=== PATIENT | female | born 2000 | race Caucasian/White ===

== ENCOUNTER → 2018-02-23 13:39 | Outpatient (CLI) | payer OTHER, SELFPAY ==
[2018-02-23 16:11] LABS: HCG,Quantitative 34 mIU/mL
== END ==
PROVIDERS: Visit Provider Nurse Practitioner Obstetrics & Gynecology
DX: Z32.00 Encounter for pregnancy test, result unknown (principal)
CPT/HCPCS: 36415; 84702

== ENCOUNTER → 2018-02-25 10:03 | Outpatient (CLI) | payer OTHER, SELFPAY ==
[2018-02-25 10:42] LABS: HCG,Quantitative 33 mIU/mL
== END ==
PROVIDERS: Visit Provider Nurse Practitioner Obstetrics & Gynecology
DX: Z30.432 Encounter for removal of intrauterine contraceptive device (principal)
CPT/HCPCS: 36415; 84702

== ENCOUNTER → 2018-03-02 12:22 | Outpatient (CLI) | payer OTHER, SELFPAY ==
[2018-03-02 13:07] LABS: HCG,Quantitative 5 mIU/mL
== END ==
PROVIDERS: Visit Provider Nurse Practitioner Obstetrics & Gynecology
DX: Z32.00 Encounter for pregnancy test, result unknown (principal)
CPT/HCPCS: 36415; 84702

== ENCOUNTER → 2018-05-05 16:32 | Outpatient (CLI) | payer OTHER, SELFPAY ==
[2018-05-05 19:22] LABS: HCG,Quantitative 5719 mIU/mL
== END ==
PROVIDERS: Visit Provider Nurse Practitioner Obstetrics & Gynecology
DX: O26.841 Uterine size-date discrepancy, first trimester (principal)
CPT/HCPCS: 36415; 84702

== ENCOUNTER → 2018-06-04 19:16 | Outpatient (REF) | payer OTHER, SELFPAY ==
[2018-06-09 19:21] LABS: Neisseria gonorrhoeae, NAA Negative (Negative)
== END ==
LOC: LAB 19:16
PROVIDERS: Obstetrics & Gynecology; Visit Provider Nurse Practitioner Obstetrics & Gynecology
DX: Z34.90 Encounter for supervision of normal pregnancy, unspecified, unspecified trimester (principal)
CPT/HCPCS: 87491; 87591

== ENCOUNTER → 2018-06-05 08:47 | Outpatient (CLI) | payer OTHER, SELFPAY ==
--- NOTE | 2018-06-05 08:49 | US_ITS ---
US OB transvaginal Ordering Physician: Leigha Cordero MD Patient Age: 17 years: Female HISTORY: ITS.REASON: US OB TV for DATES Early gestation evaluate for dates TECHNIQUE: Transvaginal ultrasound COMPARISON :No previous studies this . Transvaginal ultrasound 01/24/2015 noted FINDINGS Single viable intrauterine gestation. Cervix long closed. The amnion. Yolk sac. Embryo with heart beat identified. ... MEASUREMENTS: ... Average Ultrasound Age = 9 weeks 3 days Estimated date of delivery is on today's ultrasound is 01/05/2019 CRL 2.56 cm = 9 weeks 3 days. Yolk sac 0 point for 9 cm. Heart rate 146 BPM. -- Right ovary measures 3.6 x 1.8 x 2.2 cm. Left ovary measures 3 cm x 2.5 cm x 2.2 cm. Small follicles scattered throughout both ovaries. No dominant cyst identified. No fluid in cul-de-sac. IMPRESSION ----- 1. single viable intrauterine gestation. 2. CRL & Average Ultrasound Age = 9 weeks 3 days
== END ==
PROVIDERS: Family Provider Physician Assistant; PCP Nurse Practitioner Family; Visit Provider Obstetrics & Gynecology
DX: Z71.1 Person with feared health complaint in whom no diagnosis is made (principal)
CPT/HCPCS: 76830

== ENCOUNTER → 2019-06-10 17:13 | Outpatient (CLI) | payer OTHER, SELFPAY | PROVIDERS: Visit Provider Nurse Practitioner Family | DX: R21 Rash and other nonspecific skin eruption (principal) | CPT/HCPCS: 87070; 87077; 87186; 87205 ==

== ENCOUNTER → 2019-10-14 09:55 | Outpatient (CLI) | payer OTHER, SELFPAY ==
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
== END ==
PROVIDERS: PCP Physician Assistant; Visit Provider Physician Assistant
DX: M25.512 Pain in left shoulder (principal); M75.22 Bicipital tendinitis, left shoulder
CPT/HCPCS: 73030; 73040; 73222; Q9967

== ENCOUNTER → 2020-06-21 15:31 | Outpatient (CLI) | payer OTHER, SELFPAY ==
[2020-06-21 17:38] LABS: HCG Qualitative, Serum Negative (Negative)
[2020-06-23 18:00] LABS: HIV Screen 4th Generation wRfx Non Reactive (Non Reactive); Rapid Plasma Reagin Ab Titer Non Reactive (NonRea<1:1)
[2020-06-24 05:11] LABS: Hep A Ab, IgM Negative (Negative); Hepatitis B Core Antibody IgM Negative (Negative); Hepatitis B Surface Antigen Negative (Negative)
[2020-06-24 19:22] LABS: Hepatitis C Antibody <0.1 s/co ratio (0.0-0.9)
[2020-06-24 19:23] LABS: Neisseria gonorrhoeae, NAA Negative (Negative)
== END ==
PROVIDERS: Visit Provider Physician Assistant
DX: Z20.2 Contact with and (suspected) exposure to infections with a predominantly sexual mode of transmission (principal); N39.0 Urinary tract infection, site not specified
CPT/HCPCS: 80074; 84703; 86592; 86703; 87086; 87210; 87491; 87591; G0432

== ENCOUNTER → 2020-07-17 17:24 | Outpatient (CLI) | payer OTHER, SELFPAY | PROVIDERS: Visit Provider Nurse Practitioner Family | DX: R30.0 Dysuria (principal) | CPT/HCPCS: 87086 ==

== ENCOUNTER → 2020-09-26 10:42 | Outpatient (CLI) | payer OTHER, SELFPAY ==
[2020-09-27 13:38] LABS: Covid-19 Nasal PCR Sendout Lex NOT DETECTED
== END ==
PROVIDERS: PCP Physician Assistant; Visit Provider Physician Assistant
DX: Z03.818 Encounter for observation for suspected exposure to other biological agents ruled out (principal)
CPT/HCPCS: U0004

== ENCOUNTER → 2020-12-12 15:30 | Outpatient (CLI) | payer OTHER, SELFPAY ==
[2020-12-12 16:47] LABS: HCG,Quantitative < 2 mIU/ml (0-5.42)
== END ==
PROVIDERS: Visit Provider Nurse Practitioner Obstetrics & Gynecology
DX: N92.6 Irregular menstruation, unspecified (principal)
CPT/HCPCS: 36415; 84702

== ENCOUNTER → 2021-01-17 09:48 | Outpatient (CLI) | payer OTHER, SELFPAY ==
[2021-01-17 09:52] LABS: Adenovirus F 40/41, stool Not Detected (NotDetected); Astrovirus Not Detected (NotDetected); Campylobacter Not Detected (NotDetected); Clostridium Difficile A/B, PCR Not Detected (NotDetected); Cryptosporidium Not Detected (NotDetected); Cyclospora Cayetanesis Not Detected (NotDetected); Entamoeba histolytica Not Detected (NotDetected); Enteroaggregative E coli Not Detected (NotDetected); Enteropathogenic E coli Not Detected (NotDetected); Enterotoxigenic E coli Not Detected (NotDetected); Giardia lamblia Not Detected (NotDetected); Norovirus Not Detected (NotDetected); Plesimonas Shigalloides, PCR Not Detected (NotDetected); Rotavirus A Not Detected (NotDetected); Salmonella, PCR Not Detected (NotDetected); Sapovirus Not Detected (NotDetected); Shiga-like toxin E coli Not Detected (NotDetected); Shigella Enterovasive E coli Not Detected (NotDetected); Vibrio Cholerae Not Detected (NotDetected); Vibrio, PCR Not Detected (NotDetected); Yersinia Entercolitica, PCR Not Detected (NotDetected)
== END ==
PROVIDERS: Visit Provider Physician Assistant
DX: R19.7 Diarrhea, unspecified (principal); R11.2 Nausea with vomiting, unspecified
CPT/HCPCS: 87507

== ENCOUNTER 2021-11-06 22:38 | Emergency (ER) | payer OTHER, SELFPAY ==
[2021-11-06 22:38] VITALS: BP 152/86; PULSE 95; RESP 22; TEMP 36.8; O2SAT 99; BMI 34.7
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
[2021-11-06 23:00] VITALS: BP 136/98; PULSE 83; O2SAT 99
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
[2021-11-06 23:30] VITALS: BP 138/86; PULSE 90; O2SAT 100
[2021-11-06 23:39] LABS: Basophils # 0.2 K/mm3 (0-0.2); Basophils % 1.6 % (0.1-2.0); Eosinophils # 0.1 K/mm3 (0.0-0.4); Hematocrit 39.2 % (37.0-47.0); Hemoglobin 13.5 g/dL (12.2-16.2); Lymphocytes # 2.8 K/mm3 (0.7-4.5); Lymphocytes % 29.1 % (10-50); Mean Corpuscular HGB Conc 34.3 g/dL (31.8-35.4); Mean Corpuscular Hemoglobin 28.7 pg (27.0-31.2); Mean Corpuscular Volume 83.5 fl (81-99); Mean Platelet Volume 7.6 fl (7.4-10.4); Monocytes # 0.4 K/mm3 (0.1-1.0); Monocytes % 3.9 % (1.7-9.3); Neutrophils # 6.3 K/mm3 (1.8-7.8); Neutrophils % 64.3 % (37.0-80.0); Platelet Count 285 K/mm3 (142-424); Red Cell Distribution Width 13.8 % (11.5-17.5); White Blood Count 9.8 K/mm3 (4.8-10.8)
[2021-11-06 23:40] LABS: Chloride 105 mmol/L (98-107); Potassium 3.3 mmoL/L (3.5-5.1); Sodium 140 mmol/L (136-145)
[2021-11-06 23:42] LABS: Blood Urea Nitrogen 15 mg/dl (7-17); Creatinine Clearance Estimated 170 mL/min (50-200); Estimated Glomerular Filt Rate 104 ml/min (>60); GFR (African American) 125 ML/MIN (>60)
[2021-11-06 23:43] LABS: Alanine Aminotransferase 70 U/L (12-78); Albumin Level 4.9 g/dl (3.5-5.0); Albumin/Globulin Ratio 1.5 (1.1-1.8); Alkaline Phosphatase 77 U/L (38-126); Anion Gap 19.3 mEq/L (5-15); Aspartate Amino Transferase 55 U/L (14-36); Bilirubin,Total 0.5 mg/dl (0.2-1.3); Calcium 9.9 mg/dl (8.4-10.2); Carbon Dioxide 19 mmol/L (22.0-30.0); Globulin 3.3 g/dL (1.3-3.2); Glucose 123 mg/dl (74-100); Total Protein,Serum 8.2 g/dl (6.3-8.2)
--- NOTE | 2021-11-06 23:57 | PC.NURSE ---
Spoke with Raad, pharmacist with [facility], regarding patients prescription for tylenol with codeine and patient currently her 2 month old . Additionally, this nurse questioned pharmacy to ask how long it is recommended that the patient not nurse following the medications that she was given in the emergency room, which included lorazepam, dilauded, codeine, toradol and morphine. Patient discharge is pending return call from pharmacy.
--- NOTE | 2021-11-07 00:16 | PC.NURSE ---
Patient states that her child uses both formula and breast milk for her child so she intends to pump and dump for at least 24 hours following her last dose of her medication that she is going home on.
[2021-11-07 00:40] VITALS: BP 122/86; PULSE 78; RESP 20; TEMP 36.7; O2SAT 99
== END 2021-11-07 00:51 | disposition home or self-care (01) ==
PROVIDERS: Emergency Provider Emergency Medicine
DX: T20.29XA Burn of second degree of multiple sites of head, face, and neck, initial encounter (principal); T22.212A Burn of second degree of left forearm, initial encounter; X08.8XXA Exposure to other specified smoke, fire and flames, initial encounter
CPT/HCPCS: 71045; 80053; 85025; 96365; 96375; 99283; J2405

== ENCOUNTER → 2021-11-26 12:29 | Outpatient (CLI) | payer OTHER, SELFPAY | PROVIDERS: PCP Physician Assistant; Visit Provider Nurse Practitioner | DX: U07.1 COVID-19 (principal) | CPT/HCPCS: C9803; U0003; U0005 ==

== ENCOUNTER → 2021-12-25 09:29 | Outpatient (CLI) | payer OTHER, SELFPAY ==
[2021-12-26 06:16] LABS: Covid-19 Nasal PCR Sendout Lex NOT DETECTED
== END ==
PROVIDERS: PCP Physician Assistant; Visit Provider Nurse Practitioner
DX: Z20.822 Contact with and (suspected) exposure to COVID-19 (principal)
CPT/HCPCS: C9803; U0004; U0005

== ENCOUNTER 2022-01-29 11:41 | Emergency (ER) | payer OTHER, SELFPAY ==
[2022-01-29 13:20] VITALS: BP 0/0; PULSE 0; RESP 0; TEMP -17.7; TEMP 0
== END 2022-01-29 13:21 | disposition left against medical advice (07) ==
LOC: UTC 11:44
PROVIDERS: Emergency Provider Nurse Practitioner Family; PCP Physician Assistant
DX: Z53.21 Procedure and treatment not carried out due to patient leaving prior to being seen by health care provider (principal)